=== PATIENT | female | born 2000 | race African-American/Black ===

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

== ENCOUNTER 2021-11-17 18:12 | Emergency (ER) | payer SELFPAY ==
[2021-11-17 18:40] VITALS: BP 129/97; TEMP 99.4; BMI 34.7
[2021-11-17] MEDS ORDERED: ACETAMINOPHEN 500 MG TABLET (FP) PO ONE (18:48)
[2021-11-17] MEDS ORDERED: ACETAMINOPHEN 325 MG TABLET (FP) ONE (19:04)
[2021-11-17] MEDS ORDERED: ACETAMINOPHEN 325 MG TABLET (FP) PO ONE (19:18)
[2021-11-17 19:23] VITALS: PULSE 88
== END 2021-11-17 19:36 | disposition home or self-care (01) ==
LOC: FER 18:12
DX: B34.9 Viral infection, unspecified (principal)
CPT/HCPCS: 99283-25

== ENCOUNTER 2024-01-01 17:41 | Emergency (ER) | payer OTHER ==
[2024-01-01 17:49] VITALS: BP 123/80; PULSE 103; RESP 18; TEMP 99; BMI 36.6
[2024-01-01] MEDS ORDERED: ACETAMINOPHEN 325 MG TABLET (FP) ONE (19:02)
[2024-01-01] MEDS ORDERED: ONDANSETRON *ODT* 4 MG TABLET ONE (19:02)
[2024-01-01] MEDS: ONDANSETRON *ODT* 4 MG TABLET SL ONE (19:04)
[2024-01-01] MEDS: ACETAMINOPHEN 325 MG TABLET (FP) PO ONE (19:04)
== END 2024-01-01 19:07 | disposition home or self-care (01) ==
LOC: FER 17:41
DX: S09.90XA Unspecified injury of head, initial encounter (principal); W50.0XXA Accidental hit or strike by another person, initial encounter
CPT/HCPCS: 99283-25; Q0162